=== PATIENT | female | born 1960 | race American Indian/Alaskan Native ===

== ENCOUNTER 2016-09-05 20:11 | Inpatient (IN) | payer OTHER ==
[2016-09-05 22:31] LABS: Anion Gap 17 mmol/L; Blood Urea Nitrogen 11 mg/dL (7-17); Calcium 9.5 mg/dL (8.4-10.2); Carbon Dioxide 24 mmol/L (22-30); Chloride 97.8 mmol/L (98-107); Glucose 129 mg/dL (65-100); Potassium 4.3 mmol/L (3.6-5.0); Sodium 134 mmol/L (137-145)
[2016-09-05 22:35] LABS: Mean Corpuscular HGB Conc 34 % (30-34); Mean Corpuscular Hemoglobin 38 pg (28-32); Mean Corpuscular Volume 110 fl (79-97); Red Blood Count 1.43 M/mm3 (3.65-5.03)
[2016-09-05 22:39] LABS: Platelet Count 104 K/mm3 (140-440); White Blood Count 3.6 K/mm3 (4.5-11.0)
[2016-09-05 22:42] LABS: Hematocrit 15.7 % (30.3-42.9); Hemoglobin 5.4 gm/dl (10.1-14.3); Red Cell Distribution Width 32.1 % (13.2-15.2)
[2016-09-05 23:03] LABS: Bilirubin,Urine NEG (Negative); Blood,Urine SM (Negative); Ketones,Urine NEG (Negative); Leukocyte Esterase,Urine NEG (Negative); Nitrite,Urine NEG (Negative); Protein,Urine <15 mg/dL mg/dL (Negative)
[2016-09-05] MEDS ORDERED: NACL 0.9% 500 ML 500 ML IV ONE (23:07)
[2016-09-05 23:14] LABS: Basophils % (Manual) 0 % (0.0-1.8); Blastocytes % (Manual) 0 %
[2016-09-05 23:16] LABS: Anisocytosis 3+
[2016-09-05 23:17] LABS: Ovalocytes 1+; Poikilocytosis 2+; Tear Drop Cells 1+
[2016-09-05 23:18] LABS: Hypochromasia 3+; Microcytosis 1+
[2016-09-05 23:19] LABS: Schistocytes 1+
[2016-09-05 23:20] LABS: Diff Status Complete; Platelet Estimate Appears Decreased
--- NOTE | 2016-09-05 23:21 | Emergency Department Report ---
HPI - General Chief Complaint: Back Pain/Injury Time Seen by Provider: 09/05/16 23:06 - HPI HPI: Room 9 The patient is a 56-year-old female presenting with a chief complaint of fatigue. The patient states for the past 2 weeks she has felt tired and fatigued. The patient states she has had intermittent back pain when at work for the past 2 weeks. Patient denies abdominal pain. Patient denies nausea/ vomiting, bright red blood per rectum, melena or vaginal bleeding. Patient states she has had a history of anemia in the past but the etiology is unknown. Location: [see above] Duration: 2 weeks Quality:, Fatigue, Pain Severity: Moderate Modifying factors: [see above] Context: [see above] Mode of transportation: [not driving] ED Past Medical Hx - Past Medical History Hx Hypertension: Yes Hx Diabetes: Yes Additional medical history: Anemia - Surgical History Additional Surgical History: - Family History Family history: no significant - Social History Smoking Status: Never Smoker Substance Use Type: None - Medications Home Medications: Home Medications Medication Instructions Recorded Confirmed Last Taken Type metFORMIN mg PO BID 09/05/16 Unknown History ED Review of Systems ROS: Stated complaint: BACK PAIN Other details as noted in HPI Comment: All other systems reviewed and negative Constitutional: malaise, weakness. denies: chills, fever Eyes: denies: eye pain, eye discharge, vision change ENT: denies: ear pain, throat pain Respiratory: denies: cough, shortness of breath, wheezing Cardiovascular: denies: chest pain, palpitations Endocrine: no symptoms reported Gastrointestinal: denies: abdominal pain, nausea, vomiting, melena, hematochezia Genitourinary: denies: urgency, dysuria, discharge Musculoskeletal: back pain, myalgia. denies: joint swelling, arthralgia Skin: denies: rash, lesions Neurological: denies: headache, weakness, paresthesias Psychiatric: denies: anxiety, depression Hematological/Lymphatic: denies: easy bleeding, easy bruising Physical Exam - Physical Exam Vital Signs: Vital Signs 09/05/16 21:18 Temperature 98.8 F Pulse Rate 94 H Respiratory 18 Rate Blood Pressure 180/77 Blood Pressure 180/77 [Left] O2 Sat by Pulse 100 Oximetry Physical Exam: GENERAL: The patient is well-developed well-nourished female sitting on stretcher not appearing to be in acute distress. [] HEENT: Normocephalic. Atraumatic. Extraocular motions are intact. Patient has moist mucous membranes. NECK: Supple. Regular midline CHEST/LUNGS: Clear to auscultation. There is no respiratory distress noted. HEART/CARDIOVASCULAR: Regular. There is no tachycardia. There is no gallop rub or murmur. ABDOMEN: Abdomen is soft, nontender. Patient has normal bowel sounds. There is no abdominal distention. SKIN: There is no rash. There is no edema. There is no diaphoresis. NEURO: The patient is awake, alert, and oriented. The patient is cooperative. The patient has normal speech and gait. MUSCULOSKELETAL: There is no evidence of acute injury. RECTAL: Guaiac negative ED Course Vital Signs 09/05/16 21:18 Temperature 98.8 F Pulse Rate 94 H Respiratory 18 Rate Blood Pressure 180/77 Blood Pressure 180/77 [Left] O2 Sat by Pulse 100 Oximetry ED Medical Decision Making - Lab Data Result diagrams: 09/05/16 22:01 09/05/16 22:01 Laboratory Tests 09/05/16 09/05/16 09/05/16 21:24 22:01 22:01 WBC 3.6 L RBC 1.43 L Hgb 5.4 L* Hct 15.7 L* MCV 110 H MCH 38 H MCHC 34 RDW 32.1 H Plt Count 104 L Lymph % (Auto) Hat Finishing Materials Preparer Add Manual Diff Complete Total Counted 100 Seg Neuts % (Manual) 34.0 L Band Neutrophils % 1.0 Lymphocytes % (Manual) 59.0 H Reactive Lymphs % (Man) 0 Monocytes % (Manual) 2.0 Eosinophils % (Manual) 2.0 Basophils % (Manual) 0 Metamyelocytes % 0 Myelocytes % 2.0 Promyelocytes % 0 Blast Cells % 0 Nucleated RBC % 15.0 H Seg Neutrophils # Man 1.2 L Band Neutrophils # 0.0 Lymphocytes # (Manual) 2.1 Abs React Lymphs (Man) 0.0 Monocytes # (Manual) 0.1 Eosinophils # (Manual) 0.1 Basophils # (Manual) 0.0 Metamyelocytes # 0.0 Myelocytes # 0.1 Promyelocytes # 0.0 Blast Cells # 0.0 WBC Morphology Not Reportable Hypersegmented Neuts Not Reportable Hyposegmented Neuts Not Reportable Hypogranular Neuts Not Reportable Smudge Cells Not Reportable Toxic Granulation Not Reportable Toxic Vacuolation Not Reportable Dohle Bodies Not Reportable Pelger-Huet Anomaly Not Reportable Diane Rods Not Reportable Platelet Estimate Appears decreased Clumped Platelets Not Reportable Plt Clumps, EDTA Not Reportable Large Platelets Not Reportable Giant Platelets Not Reportable Platelet Satelliting Not Reportable Plt Morphology Comment Not Reportable RBC Morphology Not Reportable Dimorphic RBCs Not Reportable Polychromasia Not Reportable Hypochromasia 3+ Poikilocytosis 2+ Anisocytosis 3+ Microcytosis 1+ Macrocytosis Not Reportable Spherocytes Not Reportable Pappenheimer Bodies Not Reportable Sickle Cells Not Reportable Target Cells Not Reportable Tear Drop Cells 1+ Ovalocytes 1+ Helmet Cells Not Reportable [place] Bodies Not Reportable [place] Rings Not Reportable Leo Cells Not Reportable Bite Cells Not Reportable Crenated Cell Not Reportable Elliptocytes Not Reportable Acanthocytes (Spur) Not Reportable Rouleaux Not Reportable Hemoglobin C Crystals Not Reportable Schistocytes 1+ Malaria parasites Not Reportable Obi Bodies Not Reportable Hem Pathologist Commnt No PT INR APTT Sodium 134 L Potassium 4.3 Chloride 97.8 L Carbon Dioxide 24 Anion Gap 17 BUN 11 Creatinine 0.4 L Estimated GFR > 60 BUN/Creatinine Ratio 27.50 Glucose 129 H POC Glucose 182 H Calcium 9.5 Urine Color Urine Turbidity Urine pH Ur Specific [place] Urine Protein Urine Glucose (UA) Urine Ketones Urine Blood Urine Nitrite Urine Bilirubin Urine Urobilinogen Ur Leukocyte Esterase Urine WBC (Auto) Urine RBC (Auto) U Epithel Cells (Auto) Blood Type Antibody Screen Crossmatch 09/05/16 09/05/16 09/05/16 22:05 23:15 23:15 WBC RBC Hgb Hct MCV MCH MCHC RDW Plt Count Lymph % (Auto) Add Manual Diff Total Counted Seg Neuts % (Manual) Band Neutrophils % Lymphocytes % (Manual) Reactive Lymphs % (Man) Monocytes % (Manual) Eosinophils % (Manual) Basophils % (Manual) Metamyelocytes % Myelocytes % Promyelocytes % Blast Cells % Nucleated RBC % Seg Neutrophils # Man Band Neutrophils # Lymphocytes # (Manual) Abs React Lymphs (Man) Monocytes # (Manual) Eosinophils # (Manual) Basophils # (Manual) Metamyelocytes # Myelocytes # Promyelocytes # Blast Cells # WBC Morphology Hypersegmented Neuts Hyposegmented Neuts Hypogranular Neuts Smudge Cells Toxic Granulation Toxic Vacuolation Dohle Bodies Pelger-Huet Anomaly Diane Rods Platelet Estimate Clumped Platelets Plt Clumps, EDTA Large Platelets Giant Platelets Platelet Satelliting Plt Morphology Comment RBC Morphology Dimorphic RBCs Polychromasia Hypochromasia Poikilocytosis Anisocytosis Microcytosis Macrocytosis Spherocytes Pappenheimer Bodies Sickle Cells Target Cells Tear Drop Cells Ovalocytes Helmet Cells [place] Bodies [place] Rings Leo Cells Bite Cells Crenated Cell Elliptocytes Acanthocytes (Spur) Rouleaux Hemoglobin C Crystals Schistocytes Malaria parasites Obi Bodies Hem Pathologist Commnt PT 14.2 INR 1.11 APTT 25.1 Sodium Potassium Chloride Carbon Dioxide Anion Gap BUN Creatinine Estimated GFR BUN/Creatinine Ratio Glucose POC Glucose Calcium Urine Color Yellow Urine Turbidity Clear Urine pH 5.0 Ur Specific [place] 1.010 Urine Protein <15 mg/dl Urine Glucose (UA) Neg Urine Ketones Neg Urine Blood Sm Urine Nitrite Neg Urine Bilirubin Neg Urine Urobilinogen 2.0 Ur Leukocyte Esterase Neg Urine WBC (Auto) 1.0 Urine RBC (Auto) 1.0 U Epithel Cells (Auto) < 1.0 Blood Type B POSITIVE Antibody Screen Negative Crossmatch See Detail - Radiology Data Radiology results: report reviewed (CT abdomen pelvis), image reviewed (CT abdomen pelvis) CT abdomen and pelvis (read by radiologist)-there is no evidence of intestinal or urinary tract obstruction. No ileus or enteritis. The appendix is normal. The uterus is retroverted. There is slightly thickened endometrial pattern suspected. Further evaluation of the pelvic ultrasound may be of benefit. Minimal fluid in the lower pelvis. No adnexal masses are identified. - Differential Diagnosis retroperitoneal hematoma, GI bleed, symptomatic anemia Critical care attestation.: If time is entered above; I have spent that time in minutes in the direct care of this critically ill patient, excluding procedure time. ED Disposition Clinical Impression: Symptomatic anemia Disposition: OP ADMITTED IP TO THIS HOSP Is pt being admited?: Yes Does the pt Need Aspirin: No Condition: Serious Time of Disposition: 02:16 (hospitalist paged)
[2016-09-05] MEDS ORDERED: NACL ONE (23:38)
[2016-09-06 00:20] LABS: INR 1.11 (0.87-1.13); Partial Thromboplastin Time 25.1 Sec. (24.2-36.6)
--- NOTE | 2016-09-06 01:16 | Cat Scan Report ---
FINAL REPORT PROCEDURE: CT ABDOMEN PELVIS W CON TECHNIQUE: Computerized axial tomography of the abdomen and pelvis was performed after the IV injection of iodinated nonionic contrast. HISTORY: profound anemia, back pain COMPARISON: No prior studies are available for comparison. FINDINGS: Visualized lower thorax: No significant abnormality. Liver: Normal size and attenuation. Spleen: Normal size and attenuation. Gallbladder and biliary system: Normal. Pancreas: Normal. Adrenals: Normal. Kidneys: Both kidneys have normal size. No hydronephrosis. No renal stones or masses.. GI tract: Stomach has a normal appearance. The small bowel has a normal caliber. No obstruction, ileus or enteritis. Evaluation the bowel is limited without oral contrast. The cecum and appendix are normal. There is significant fecal debris throughout the colon.. Lymph nodes and mesentery: Normal. Vasculature: Normal. Bladder: Normal. Reproductive organs: Uterus is retroverted. There appears to be a thickened endometrial pattern. Further evaluation with ultrasound may be appropriate. No pelvic masses.. Peritoneum: Slight fluid in the lower pelvis.. Musculoskeletal structures: Mild degenerative changes of the spine.. Other: None. IMPRESSION: There is no evidence of intestinal or urinary tract obstruction. No ileus or enteritis. The appendix is normal. The uterus is retroverted. There is a slightly thickened endometrial pattern suspected. Further evaluation of the pelvic structures with ultrasound may be of benefit. Minimal fluid in the lower pelvis. No adnexal masses are identified.
--- NOTE | 2016-09-06 02:25 | History and Physical Report ---
History of Present Illness Date of examination: 09/06/16 Chief complaint: Tiredness History of present illness: 56 year old -[place] female with past medical history significant for hypertension hyperlipidemia, diabetes mellitus, anemia presented to the emergency department complaining of feeling tired and weak for the last 2 weeks. Patient denied any recent blood loss, headache, palpitation, chest pain. Patient didn't have any vaginal bleeding. Patient didn't have a loss of appetite. She had anemia for long time but it was not very concerning. CT of the abdomen and pelvis was done and is significant for endometrial thickening. REVIEW OF SYSTEMS: GENERAL: no weight change, +fatigue, no fever HEAD: no head ache EYES: no blurry vision, no acute visual loss EARS: no hearing loss, no discharge, no earache NOSE: no stuffiness, no sneezing, no discharge MOUTH, THROAT AND NECK: no bleeding gums, no sore throat, no swollen neck CARDIAC: no palpitations, no dyspnea on exertion, no orthopnea, no PND, no edema , no chest pain RESPIRATORY: no shortness of breath, no wheeze, no cough, no sputum, no hemoptysis, no asthma GI: no decreased appetite, no nausea, no vomiting, no dysphagia, no diarrhea, no constipation, no abdominal pain URINARY: no change in frequency, no urgency, no polyuria, no hematuria, no incontinence MUSCULOSKELETAL: no muscle weakness, no pain, no joint stiffness NEUROLOGIC: no loss of sensation/numbness, no tingling, no tremors, no weakness/ paralysis HEMATOLOGIC: no anemia, no easy bruising SKIN: no rashes ENDOCRINE: no heat/cold intolerance, no polyuria, no polydipsia, no thyroid problems PSYCHIATRIC: no anxiety, no depression, no suicidal ideations Past History Past Medical History: diabetes, hypertension Past Surgical History: Social history: full code. denies: smoking, alcohol abuse, prescription drug abuse, IV drug use Family history: no significant family history Medications and Allergies Allergies Allergy/AdvReac Type Severity Reaction Status Date / Time No Known Allergies Allergy Unverified 09/05/16 21:43 Home Medications Medication Instructions Recorded Confirmed Last Taken Type metFORMIN mg PO BID 09/05/16 Unknown History Exam - Physical Exam Narrative exam: Not in cardiopulmonary distress. The patient appeared well nourished and normally developed. Vital signs as documented. Head exam is unremarkable. No scleral icterus . Neck is without jugular venous distension, thyromegaly, or carotid bruits. Lungs are clear to auscultation. Cardiac exam reveals regular rate and Rhythm. First and second heart sounds normal. No murmurs, rubs or gallops. Abdominal exam reveals normal bowel sounds, no masses, no organomegaly and no aortic enlargement. Extremities are nonedematous and both femoral and pedal pulses are normal. Skin: generalized pallor. SERVICE DESK LEAD: Alert and oriented 3. No focal weakness. - Constitutional Vitals: Temp Pulse Resp BP Pulse Ox 98.8 F 94 H 18 180/77 100 09/05/16 21:18 09/05/16 21:18 09/05/16 21:18 09/05/16 21:18 09/05/16 21:18 Results - Labs CBC & Chem 7: 09/05/16 22:01 09/05/16 22:01 Labs: Laboratory Last Values WBC 3.6 K/mm3 (4.5-11.0) L 09/05/16 22: RBC 1.43 M/mm3 (3.65-5.03) L 09/05/16 22:01 Hgb 5.4 gm/dl (10.1-14.3) L* 09/05/16 22: Hct 15.7 % (30.3-42.9) L* 09/05/16 22:01 MCV 110 fl (79-97) H 09/05/16 22:01 MCH 38 pg (28-32) H 09/05/16 22:01 MCHC 34 % (30-34) 09/05/16 22:01 RDW 32.1 % (13.2-15.2) H 09/05/16 22:01 Plt Count 104 K/mm3 (140-440) L 09/05/16 22:01 Lymph % (Auto) Textile Converter 09/05/16 22:01 Add Manual Diff Complete 09/05/16 22: Total Counted 100 09/05/16 22:01 Seg Neuts % (Manual) 34.0 % (40.0-70.0) L 09/05/16 22:01 Band Neutrophils % 1.0 % 09/05/16 22:01 Lymphocytes % (Manual) 59.0 % (13.4-35.0) H 09/05/16 22:01 Reactive Lymphs % (Man) 0 % 09/05/16 22:01 Monocytes % (Manual) 2.0 % (0.0-7.3) 09/05/16 22:01 Eosinophils % (Manual) 2.0 % (0.0-4.3) 09/05/16 22:01 Basophils % (Manual) 0 % (0.0-1.8) 09/05/16 22:01 Metamyelocytes % 0 % 09/05/16 22:01 Myelocytes % 2.0 % 09/05/16 22:01 Promyelocytes % 0 % 09/05/16 22:01 Blast Cells % 0 % 09/05/16 22:01 Nucleated RBC % 15.0 % (0.0-0.9) H 09/05/16 22:01 Seg Neutrophils # Man 1.2 K/mm3 (1.8-7.7) L 09/05/16 22:01 Band Neutrophils # 0.0 K/mm3 09/05/16 22:01 Lymphocytes # (Manual) 2.1 K/mm3 (1.2-5.4) 09/05/16 22:01 Abs React Lymphs (Man) 0.0 K/mm3 09/05/16 22:01 Monocytes # (Manual) 0.1 K/mm3 (0.0-0.8) 09/05/16 22:01 Eosinophils # (Manual) 0.1 K/mm3 (0.0-0.4) 09/05/16 22:01 Basophils # (Manual) 0.0 K/mm3 (0.0-0.1) 09/05/16 22:01 Metamyelocytes # 0.0 K/mm3 09/05/16 22:01 Myelocytes # 0.1 K/mm3 09/05/16 22:01 Promyelocytes # 0.0 K/mm3 09/05/16 22:01 Blast Cells # 0.0 K/mm3 09/05/16 22:01 WBC Morphology Not Reportable 09/05/16 22:01 Hypersegmented Neuts Not Reportable 09/05/16 22:01 Hyposegmented Neuts Not Reportable 09/05/16 22:01 Hypogranular Neuts Not Reportable 09/05/16 22:01 Smudge Cells Not Reportable 09/05/16 22:01 Toxic Granulation Not Reportable 09/05/16 22:01 Toxic Vacuolation Not Reportable 09/05/16 22:01 Dohle Bodies Not Reportable 09/05/16 22:01 Pelger-Huet Anomaly Not Reportable 09/05/16 22:01 Diane Rods Not Reportable 09/05/16 22:01 Platelet Estimate Appears decreased 09/05/16 22:01 Clumped Platelets Not Reportable 09/05/16 22:01 Plt Clumps, EDTA Not Reportable 09/05/16 22:01 Large Platelets Not Reportable 09/05/16 22:01 Giant Platelets Not Reportable 09/05/16 22:01 Platelet Satelliting Not Reportable 09/05/16 22:01 Plt Morphology Comment Not Reportable 09/05/16 22:01 RBC Morphology Not Reportable 09/05/16 22:01 Dimorphic RBCs Not Reportable 09/05/16 22:01 Polychromasia Not Reportable 09/05/16 22:01 Hypochromasia 3+ 09/05/16 22:01 Poikilocytosis 2+ 09/05/16 22:01 Anisocytosis 3+ 09/05/16 22:01 Microcytosis 1+ 09/05/16 22:01 Macrocytosis Not Reportable 09/05/16 22:01 Spherocytes Not Reportable 09/05/16 22:01 Pappenheimer Bodies Not Reportable 09/05/16 22:01 Sickle Cells Not Reportable 09/05/16 22:01 Target Cells Not Reportable 09/05/16 22:01 Tear Drop Cells 1+ 09/05/16 22:01 Ovalocytes 1+ 09/05/16 22:01 Helmet Cells Not Reportable 09/05/16 22:01 Sam-[place] Bodies Not Reportable 09/05/16 22:01 [place] Rings Not Reportable 09/05/16 22:01 Leo Cells Not Reportable 09/05/16 22:01 Bite Cells Not Reportable 09/05/16 22:01 Crenated Cell Not Reportable 09/05/16 22:01 Elliptocytes Not Reportable 09/05/16 22:01 Acanthocytes (Spur) Not Reportable 09/05/16 22:01 Rouleaux Not Reportable 09/05/16 22:01 Hemoglobin C Crystals Not Reportable 09/05/16 22:01 Schistocytes 1+ 09/05/16 22:01 Malaria parasites Not Reportable 09/05/16 22:01 Obi Bodies Not Reportable 09/05/16 22:01 Hem Pathologist Commnt No 09/05/16 22:01 PT 14.2 Sec. (12.2-14.9) 09/05/16 23:15 INR 1.11 (0.87-1.13) 09/05/16 23:15 APTT 25.1 Sec. (24.2-36.6) 09/05/16 23:15 Sodium 134 mmol/L (137-145) L 09/05/16 22:01 Potassium 4.3 mmol/L (3.6-5.0) 09/05/16 22:01 Chloride 97.8 mmol/L (98-107) L 09/05/16 22:01 Carbon Dioxide 24 mmol/L (22-30) 09/05/16 22:01 Anion Gap 17 mmol/L 09/05/16 22:01 BUN 11 mg/dL (7-17) 09/05/16 22:01 Creatinine 0.4 mg/dL (0.7-1.2) L 09/05/16 22:01 Estimated GFR > 60 ml/min 09/05/16 22:01 BUN/Creatinine Ratio 27.50 % 09/05/16 22:01 Glucose 129 mg/dL (65-100) H 09/05/16 22:01 POC Glucose 182 (70-105) H 09/05/16 21:24 Calcium 9.5 mg/dL (8.4-10.2) 09/05/16 22:01 Urine Color Yellow (Yellow) 09/05/16 22:05 Urine Turbidity Clear (Clear) 09/05/16 22:05 Urine pH 5.0 (5.0-7.0) 09/05/16 22:05 Ur Specific [place] 1.010 (1.003-1.030) 09/05/16 22:05 Urine Protein <15 mg/dl mg/dL (Negative) 09/05/16 22:05 Urine Glucose (UA) Neg mg/dL (Negative) 09/05/16 22:05 Urine Ketones Neg mg/dL (Negative) 09/05/16 22:05 Urine Blood Sm (Negative) 09/05/16 22:05 Urine Nitrite Neg (Negative) 09/05/16 22:05 Urine Bilirubin Neg (Negative) 09/05/16 22:05 Urine Urobilinogen 2.0 mg/dL (<2.0) 09/05/16 22:05 Ur Leukocyte Esterase Neg (Negative) 09/05/16 22:05 Urine WBC (Auto) 1.0 /HPF (0.0-6.0) 09/05/16 22:05 Urine RBC (Auto) 1.0 /HPF (0.0-6.0) 09/05/16 22:05 U Epithel Cells (Auto) < 1.0 /HPF (0-13.0) 09/05/16 22:05 Blood Type B POSITIVE 09/05/16 23:15 Antibody Screen Negative 09/05/16 23:15 Crossmatch See Detail 09/05/16 23:15 - Imaging and Cardiology CT scan - pelvis: report reviewed US - abdomen: report reviewed Assessment and Plan Assessment and plan: Symptomatic anemia Endometrial thickening on CT Uncontrolled hypertension Diabetes mellitus type 2 - Transfused 2 units of blood, check H&H after that - NUCLEAR ENGINEER and consent placed - Start on amlodipine, hydralazine when necessary - Sliding-scale insulin DVT prophylaxis - SCD Disposition - Admit to the medical floor Advance Directives: Yes VTE prophylaxis?: Mechanical Plan of care discussed with patient/family: Yes
[2016-09-06] MEDS ORDERED: NACL 0.9% 500 ML 500 ML ONE (02:42)
[2016-09-06] MEDS ORDERED: APRESOLINE IV PRN (04:38)
[2016-09-06] MEDS ORDERED: D50W (25GM) IV PRN (04:39)
[2016-09-06] MEDS ORDERED: NACL 0.9% 250ML 250 ML ONE (06:18)
[2016-09-06] MEDS: NORVASC PO SCH (10:50)
--- NOTE | 2016-09-06 14:07 | Consultation ---
History of Present Illness Consult date: 09/06/16 Requesting physician: MAINOR KAUR Reason for consult: other (Endometrial hyperplasia) History of present illness: Pt is a 56yo BF LMP 4 years ago spontaneously presented to the emergency department complaining of feeling tired and weak for the last 2 weeks. Patient denies any recent blood loss, headache, palpitation, chest pain or vaginal bleeding. She also denies having a loss of appetite, but has noticed ~ 20lb weight loss in the past 4 weeks. She has been anemic for long a time but it was not very concerning. A CT of the abdomen and pelvis was done, and is significant for endometrial thickening, and thus I have been consulted for further evaluation. Past History Past Medical History: hypertension, diabetes Past Surgical History: section Social history: no significant social history, Medications and Allergies Allergies Allergy/AdvReac Type Severity Reaction Status Date / Time No Known Allergies Allergy Unverified 09/05/16 21:43 Home Medications Medication Instructions Recorded Confirmed Last Taken Type metFORMIN mg PO BID 09/05/16 Unknown History Active Meds: Active Medications Acyclovir (Zovirax) 800 mg PO Q12H ANEUDY Amlodipine Besylate (Norvasc) 5 mg PO QDAY ANEUDY Last Admin: 09/06/16 10:50 Dose: 5 mg Dextrose (D50w (25gm)) 50 ml IV PRN PRN PRN Reason: Hypoglycemia Hydralazine HCl (Apresoline) 10 mg IV Q4H PRN PRN Reason: Hypertension Last Admin: 09/06/16 06:11 Dose: 10 mg Insulin Aspart (Novolog) 0 units SUB-Q ACHS ANEUDY PRN Reason: Protocol Review of Systems All systems: negative - Vital Signs Vital signs: Vital Signs Temp Pulse Resp BP Pulse Ox 98 F 94 H 18 180/77 100 09/05/16 21:18 09/05/16 21:18 09/05/16 21:18 09/05/16 21:18 09/05/16 21:18 Temp Pulse Resp BP Pulse Ox 98.6 F 73 20 157/76 98 09/06/16 10:28 09/06/16 10:50 09/06/16 10:28 09/06/16 10:50 09/06/16 08:10 - Physical Exam Breasts: Positive: deferred Cardiovascular: Regular rate Lungs: Positive: Clear to auscultation Abdomen: Positive: normal appearance, soft Uterus: Positive: other (deferred) Extremities: Positive: normal Results Result Diagrams: 09/06/16 14:46 09/05/16 22:01 Abnormal lab results 09/06/16 09/06/16 Range/Units 05:25 11:29 POC Glucose 112 H (70-105) Hemoglobin A1c 7.2 H (4-6) % All other labs normal. CT scan - pelvis: report reviewed Assessment and Plan - Patient Problems (1) Symptomatic anemia Onset Date: 09/06/16 Current Visit: Yes Status: Acute Plan to address problem: A: Symptomatic anemia - not currently bleeding Endometrial thickening on CT Scan Chronic Hypertension Diabetes Mellitus P: Agree with current admission and blood transfusion Will obtain a pelvic u/s Will follow with you
[2016-09-06] MEDS: NOVOLOG SUB-Q SCH ×3 (14:12→22:51)
[2016-09-06 15:20] LABS: Hematocrit 24.9 % (30.3-42.9); Hemoglobin 8.4 gm/dl (10.1-14.3)
--- NOTE | 2016-09-06 15:30 | Event Note ---
Date: 09/06/16 Patient seen and examined in no acute distress. Awaiting ROD CUP FILLER evaluation. Stool is negative for blood. Accu-Cheks adjusted with insulin changed to before meals and at bedtime. Repeat a.m. labs. Anticipate discharge in a.m. if no further intervention by ROD CUP FILLER.
[2016-09-06] MEDS: ZOVIRAX PO SCH (18:17)
[2016-09-06] MEDS ORDERED: NOVOLOG SUB-Q SCH (22:00)
[2016-09-07] MEDS: ZOVIRAX PO SCH (00:17)
[2016-09-07 05:59] LABS: Hematocrit 24.6 % (30.3-42.9); Hemoglobin 8.4 gm/dl (10.1-14.3); Mean Corpuscular HGB Conc 34 % (30-34); Mean Corpuscular Hemoglobin 32 pg (28-32); Mean Corpuscular Volume 94 fl (79-97); Red Blood Count 2.63 M/mm3 (3.65-5.03); White Blood Count 3.6 K/mm3 (4.5-11.0)
[2016-09-07 06:15] LABS: Platelet Count 105 K/mm3 (140-440); Red Cell Distribution Width 32.3 % (13.2-15.2)
[2016-09-07 06:23] LABS: Anion Gap 20 mmol/L; Blood Urea Nitrogen 12 mg/dL (7-17); Calcium 9.5 mg/dL (8.4-10.2); Carbon Dioxide 24 mmol/L (22-30); Chloride 100.2 mmol/L (98-107); Glucose 140 mg/dL (65-100); Potassium 4.1 mmol/L (3.6-5.0); Sodium 140 mmol/L (137-145)
--- NOTE | 2016-09-07 07:50 | Ultrasound Report ---
ULTRASOUND PELVIC COMPLETE ULTRASOUND TRANSVAGINAL HISTORY: Uterine fibroid disease. TECHNIQUE: Transabdominal and transvaginal ultrasound with color and spectral doppler interrogation. The uterus is retroverted and measures 7.9 x 3.3 x 5.9 cm. A 1.5 x 1.5 cm hypoechoic, submucosal fibroid is identified in the anterior wall. A 1.0 cm intramural fibroid is noted in the uterine fundus. The endometrial stripe appears slightly atrophic measuring 4 mm. The cervix is unremarkable. The right ovary measures 2.8 x 2.2 x 1.7 cm. The left ovary measures 2.1 x 1.4 x 2.2 cm. No adnexal cyst or mass. There is trace free fluid in the cul-de-sac which appears physiologic. IMPRESSION: Small uterine fibroids as outlined above. Mild endometrial atrophy. Trace pelvic fluid.
[2016-09-07] MEDS: NOVOLOG SUB-Q SCH (07:59)
--- NOTE | 2016-09-07 08:09 | Discharge Summary ---
Providers - Providers Date of Admission: 09/06/16 02:20 Date of discharge: 09/07/16 Attending physician: CASTRO WHITE MD 09/06/16 02:23 Consult to Physician [CONS] Routine Consulting Provider: KEYON MCKEON Reason For Exam: symptomatic anemia, endometrial thickening Place consult to:: optical manager Notified:: pager Phone number called:: [phone] Was contact made?: Yes If yes, spoke with:: dr. mckeon Time called:: 09:54 Primary care physician: PULMONARY PHYSICAL THERAPIST Hospitalization Reason for admission: symptomatic anemia Condition: Serious Hospital course: 56 year old -Polish female with past medical history significant for hypertension hyperlipidemia, diabetes mellitus, anemia presented to the emergency department complaining of feeling tired and weak for the last 2 weeks. Patient denied any recent blood loss, headache, palpitation, chest pain. Patient didn't have any vaginal bleeding. Patient didn't have a loss of appetite. She had anemia for long time but it was not very concerning. CT of the abdomen and pelvis was done and is significant for endometrial thickening. Patient received 2 units packed red blood cell transfusion ultrasound was done which showed small uterine fibroids and thickened endometrium TIRE AND LUBE TECHNICIAN recommended outpatient follow-up. She is clinically stable at this time for discharge. Treatment was discussed with the patient and also with the daughter was in the room throughout the stay. Discharge diagnosis Symptomatic anemia Uterine fibroids Thickened endometrium Uncontrolled hypertension Diabetes mellitus type 2 Disposition: DISCHARGED TO HOME OR SELFCARE Time spent for discharge: 35 mins Core Measure Documentation - Palliative Care Palliative Care/ Comfort Measures: Not Applicable - Core Measures Any of the following diagnoses?: none - VTE Discharge Requirements Deep Vein Thrombosis/Pulmonary Embolism Present on Admission: No Exam - Physical Exam Narrative exam: VITAL SIGNS: Reviewed. GENERAL: The patient appeared well nourished and normally developed. Vital signs as documented. HEAD: No signs of head trauma. EYES: Pupils are equal. Extraocular motions intact. EARS: Hearing grossly intact. MOUTH: Oropharynx is normal. NECK: No adenopathy, no JVD. CHEST: Chest with clear breath sounds bilaterally. No wheezes, rales, or rhonchi. CARDIAC: Regular rate and rhythm. S1 and S2, without murmurs, gallops, or rubs. VASCULAR: No Edema. Peripheral pulses normal and equal in all extremities. ABDOMEN: Soft, without detectable tenderness. No sign of distention. No rebound or guarding, and no masses palpated. Bowel Sounds normal. MUSCULOSKELETAL: Good range of motion of all major joints. Extremities without clubbing, cyanosis or edema. NEUROLOGIC EXAM: Alert and oriented x 3. No focal sensory or strength deficits. Speech normal. Follows commands. PSYCHIATRIC: Mood normal. SKIN: No rash or lesions. - Constitutional Vitals: Temp Pulse Resp BP Pulse Ox 98.2 F 72 20 142/66 97 09/07/16 00:30 09/07/16 00:30 09/07/16 00:30 09/07/16 00:30 09/07/16 00:30 Plan Activity: advance as tolerated, fall precautions Diet: low fat, diabetic Follow up with: PRIMARY CARE, [Primary Care Provider] - 3-5 Days KEYON MCKEON MD [Staff Physician] - 7 Days Prescriptions: Ferrous Sulfate [Feosol 325 MG tab] 325 mg PO BID #60 tablet Lisinopril [Zestril TAB] 10 mg PO QDAY #30 tablet
[2016-09-07 08:11] VITALS: BP 154/78
--- NOTE | 2016-09-07 09:22 | Admit Criteria Form ---
Admission Criteria Documentation: ANEMIA, IRON DEFICIENCY OR UNSPECIFIED Clinical Indications for Inpatient Care (Place 'X' for any and all applicable criteria): Admission is indicated for ANY ONE of the following(1)(2)(3)(4)(5)(6)(7): [X I. Inpatient admission required rather than observation care (Also use Anemia, Iron Deficiency or Unspecified: Observation Care guideline as appropriate) because of ANY ONE of the following: [] a) Hemodynamic instability that is severe or persistent [] b) Active bleeding that cannot be rapidly controlled [] c) CVS symptoms (i.e., dyspnea, chest pain, heart failure) that are severe or persistent [] d) Neurologic symptoms (i.e., cognitive impairment, recurrent syncope or near syncope) that are severe or persistent [] e) Cardiac arrhythmias of immediate concern [] f) Acute peripheral ischemia (e.g., pulseless, cool, mottled, or cyanotic extremity) [] g) High-risk low platelet count [] h) Acute renal failure [] i) Ongoing transfusion for blood loss (greater than 2 units) [] j) IV fluid to replace significant ongoing (eg, >24 hours) losses (> 3 L/m2 per day) [] k) Pulmonary artery catheter monitoring [] l) Supplemental oxygen or respiratory treatments for over 24 hours that are performable only in acute inpatient setting [] m) Immediate inpatient surgery [X n) Other condition, treatment or monitoring requiring inpatient admission [] II Active massive hemorrhage [] III. Active hemolysis with rapidly progressive anemia [A](6) Extended stay beyond goal length of stay may be needed for (17)(18) []a) Diagnosed cause of anemia requiring longer hospitalization (eg, active GI bleeding, immune hemolysis requiring electrophoresis, complications of malignancy requiring acute care []b) Continued emergent anemia indicators (23) []c) Transfusion reactions []d) Associated leukopenia or thrombocytopenia needing inpatient care []e) Active comorbidities (eg, renal failure, heart failure) The original [facility] Care Guidelines content created by [facility] Care Guidelines has been revised. The portions of the content which have been revised are identified through the use of italic text or in bold. [facility] Guidelines has neither reviewed nor approved the modified material. All other unmodified content is copyright [facility] Care Guidelines. Please see references footnoted in the original [facility] edition 2016 Admission Criteria Met: Yes
[2016-09-07] MEDS: NORVASC PO SCH (11:03)
== END 2016-09-07 12:01 | disposition home or self-care (01) | DRG 761 ==
LOC: ED 20:11 → 3A 09-06 02:20
PROVIDERS: ADMIT Internal Medicine; ATTEND Internal Medicine
PROC: 30233N1 Transfusion of Nonautologous Red Blood Cells into Peripheral Vein, Percutaneous Approach (ICD-10-PCS; principal; 2016-09-06)
DX: D25.9 Leiomyoma of uterus, unspecified (principal); D64.9 Anemia, unspecified; E11.9 Type 2 diabetes mellitus without complications; I10 Essential (primary) hypertension; E78.5 Hyperlipidemia, unspecified; R93.8 Abnormal findings on diagnostic imaging of other specified body structures
CPT/HCPCS: 36415; 74177; 76830; 76856; 80048; 81001; 82271; 82962; 83036; 85007; 85014; 85018; 85025; 85027; 85610; 85730; 86850; 86900; 86901; 86920; J0360; J1815; J7040; J7050; P9016; Q9967

== ENCOUNTER 2021-09-26 13:00 | Emergency (ER) | payer OTHER ==
[2021-09-26 13:53] VITALS: BP 116/66
[2021-09-26] MEDS ORDERED: ACETAMINOPHEN 500 MG TAB PO ONE (19:53)
--- NOTE | 2021-09-26 20:03 | Emergency Department Report ---
- General Chief Complaint: Dyspnea/Respdistress Stated Complaint: BODY PAIN Source: patient Mode of arrival: Ambulatory Limitations: No Limitations - History of Present Illness Initial Comments: 61-year-old female presents to the ED with complaint of cough, body ache, facial pain, earache and fever x5 days. Patient states that she has a stuffy nose and in the morning time she noticed the cough. Patient states that she missed her primary care doctor appointment on yesterday due to not feeling well. Patient states that bending forward that the pain is worsened. Patient denies any prior medication. Alert and oriented x3. No acute distress noted. No ill appearance noted. MD Complaint: fever, cough, sore throat, sinus pain Onset/Timin -: days(s) Associated Symptoms: fever, nasal congestion, sore throat, cough Treatments Prior to Arrival: none - Related Data Home Medications Medication Instructions Recorded Confirmed Last Taken metFORMIN mg PO BID 09/05/16 Unknown Previous Rx's Medication Instructions Recorded Last Taken Type Ferrous Sulfate [Feosol 325 MG tab] 325 mg PO BID #60 tablet 09/07/16 Unknown Rx lisinopriL [Zestril TAB] 10 mg PO QDAY #30 tablet 09/07/16 Unknown Rx Amoxicillin/K Clav Tab [Augmentin 1 tab PO Q12HR 10 Days #20 tab 09/26/21 Unknown Rx 875 mg] Levocetirizine Dihydrochloride 5 mg PO DAILY 30 Days #30 tab 09/26/21 Unknown Rx [Xyzal] predniSONE [Deltasone] 50 mg PO QDAY 3 Days #3 tab 09/26/21 Unknown Rx Allergies Allergy/AdvReac Type Severity Reaction Status Date / Time No Known Allergies Allergy Unverified 09/05/16 21:43 ED Review of Systems ROS: Stated complaint: BODY PAIN Other details as noted in HPI Constitutional: denies: chills, fever Eyes: denies: eye pain, eye discharge, vision change ENT: throat pain. denies: ear pain Respiratory: cough. denies: shortness of breath, wheezing Cardiovascular: denies: chest pain, palpitations Endocrine: no symptoms reported Gastrointestinal: denies: abdominal pain, nausea, diarrhea Genitourinary: denies: urgency, dysuria, discharge Musculoskeletal: denies: back pain, joint swelling, arthralgia Skin: denies: rash, lesions Neurological: denies: headache, weakness, paresthesias Psychiatric: denies: anxiety, depression Hematological/Lymphatic: denies: easy bleeding, easy bruising ED Past Medical Hx - Past Medical History Hx Hypertension: Yes Hx Congestive Heart Failure: No Hx Diabetes: Yes Hx Asthma: No Hx COPD: No Additional medical history: Anemia - Surgical History Additional Surgical History: - Social History Smoking Status: Never Smoker - Medications Home Medications: Home Medications Medication Instructions Recorded Confirmed Last Taken Type metFORMIN mg PO BID 09/05/16 Unknown History Ferrous Sulfate [Feosol 325 MG tab] 325 mg PO BID #60 tablet 09/07/16 Unknown Rx lisinopriL [Zestril TAB] 10 mg PO QDAY #30 tablet 09/07/16 Unknown Rx Amoxicillin/K Clav Tab [Augmentin 1 tab PO Q12HR 10 Days #20 tab 09/26/21 Unknown Rx 875 mg] Levocetirizine Dihydrochloride 5 mg PO DAILY 30 Days #30 tab 09/26/21 Unknown Rx [Xyzal] predniSONE [Deltasone] 50 mg PO QDAY 3 Days #3 tab 09/26/21 Unknown Rx ED Physical Exam - General Limitations: No Limitations General appearance: alert, in no apparent distress - Head Head exam: Present: atraumatic, normocephalic - Eye Eye exam: Present: normal appearance - ENT ENT exam: Present: mucous membranes moist - Neck Neck exam: Present: normal inspection - Respiratory Respiratory exam: Present: normal lung sounds bilaterally. Absent: respiratory distress - Cardiovascular Cardiovascular Exam: Present: regular rate, normal rhythm. Absent: systolic murmur, diastolic murmur, rubs, gallop - GI/Abdominal GI/Abdominal exam: Present: soft, normal bowel sounds - Extremities Exam Extremities exam: Present: normal inspection - Back Exam Back exam: Present: normal inspection - Neurological Exam Neurological exam: Present: alert, oriented X3 - Psychiatric Psychiatric exam: Present: normal affect, normal mood - Skin Skin exam: Present: warm, dry, intact, normal color. Absent: rash ED Course Vital Signs 09/26/21 09/26/21 13:52 20:03 Temperature 100.2 F H 100.0 F H Pulse Rate 95 H 82 Respiratory 19 Rate Blood Pressure 116/66 [Right] O2 Sat by Pulse 94 98 Oximetry ED Medical Decision Making - Lab Data Result diagrams: 09/26/21 20:45 09/26/21 20:45 - Radiology Data [facility] [address] [place] [address] XRay Report Signed Patient: CHUCK AREVALO V MR#: [id number] : 1960 Acct:[id number] Age/Sex: 61 / F ADM Date: 09/26/21 Loc: ED Attending Dr: Ordering Physician: OLEKSANDR ALVAREZ Date of Service: 09/26/21 Procedure(s): XR chest routine 2V Accession Number(s): [id number] cc: OLEKSANDR ALVAREZ Fluoro Time In Minutes: CHEST 2 VIEWS INDICATION / CLINICAL INFORMATION: cough. Generalized body pain since Wednesday. COMPARISON: None available. FINDINGS: SUPPORT DEVICES: None. HEART / MEDIASTINUM: No significant abnormality. LUNGS / PLEURA: No significant pulmonary or pleural abnormality. No pneumothorax. ADDITIONAL FINDINGS: No significant additional findings. IMPRESSION: 1. No acute findings. Signer Name: Kem Martinez MD Signed: 09/26/2021 9:22 PM Workstation Name: [id number] Transcribed By: DT Dictated By: Norm Martinez MD Electronically Authenticated By: Norm Martinez MD Signed Date/Time: 09/26/212121 DD/ 21 TD/TT: - Medical Decision Making 61-year-old female presents to the ED with complaint of cough, body ache, facial pain, earache and fever x5 days. Patient states that she has a stuffy nose and in the morning time she noticed the cough. Patient states that she missed her primary care doctor appointment on yesterday due to not feeling well. Patient states that bending forward that the pain is worsened. Patient denies any prior medication. Alert and oriented x3. No acute distress noted. No ill appe arance noted. Physical examination patient has maxillary and frontal tenderness to the sinus cavity,post nasal drip noted. Two-view chest x-ray no acute finding noted. Rechecked the patient is resting quietly quietly and comfortable and feeling better. I discussed the results of diagnostic study, my clinical impression and the plan for further treatment with the patient. Patient agrees with plan and discharge at this present time. All question addressed. I have given the patient instruction regarding a diagnosis ,expectation ,follow- up and return precaution. I explained to the patient that emergent condition may arise and to return to the ED for new worsen and any new persisting condition. I have explained the importance of following up with the primary care physician or referral physician listed below has instructed. The patient verbalized understanding of discharge instruction. Abnormal Lab Results 09/26/21 09/26/21 20:45 20:45 WBC 3.9 L RBC 3.87 Hgb 12.6 Hct 37.6 MCV 97 MCH 33 H MCHC 34 RDW 14.5 Plt Count 179 Lymph % (Auto) 33.1 [place] % (Auto) 13.9 H Eos % (Auto) 0.4 Baso % (Auto) 0.5 Lymph # (Auto) 1.3 [place] # (Auto) 0.5 Eos # (Auto) 0.0 Baso # (Auto) 0.0 Seg Neutrophils % 52.1 Seg Neutrophils # 2.0 Sodium 135 L Potassium 3.9 Chloride 98.2 Carbon Dioxide 25 Anion Gap 16 BUN 24 H Creatinine 1.1 Estimated GFR > 60 BUN/Creatinine Ratio 22 Glucose 148 H Calcium 8.7 Total Bilirubin 0.20 AST 25 ALT 20 Alkaline Phosphatase 83 Total Protein 8.0 Albumin 3.9 Albumin/Globulin Ratio 1.0 Critical care attestation.: If time is entered above; I have spent that time in minutes in the direct care of this critically ill patient, excluding procedure time. ED Disposition Clinical Impression: Sinusitis Qualifiers: Sinusitis location: frontal Chronicity: acute Recurrence: non-recurrent Qualified Code(s): J01.10 - Acute frontal sinusitis, unspecified Disposition: HOME / SELF CARE / HOMELESS Is pt being admited?: No Does the pt Need Aspirin: No Condition: Stable Instructions: Sinusitis, Adult, [id number] Additional Instructions: Take medication as prescribed Return to the ED for any worsening symptom Prescriptions: Amoxicillin/K Clav Tab [Augmentin 875 mg] 1 tab PO Q12HR 10 Days #20 tab predniSONE [Deltasone] 50 mg PO QDAY 3 Days #3 tab Levocetirizine Dihydrochloride [Xyzal] 5 mg PO DAILY 30 Days #30 tab Referrals: ANTHONY OLMSTEAD MD [Primary Care Provider] - 3-5 Days Forms: Work/School Release Form(ED) Time of Disposition: 21:40
[2021-09-26 20:55] LABS: Basophils % (Auto) 0.5 % (0.0-1.8); Eosinophils % (Auto) 0.4 % (0.0-4.3); Hematocrit 37.6 % (30.3-42.9); Hemoglobin 12.6 gm/dl (10.1-14.3); Lymphocytes # (Auto) 1.3 K/mm3 (1.2-5.4); Lymphocytes % (Auto) 33.1 % (13.4-35.0); Mean Corpuscular HGB Conc 34 % (30-34); Mean Corpuscular Volume 97 fl (79-97); Monocytes # (Auto) 0.5 K/mm3 (0.0-0.8); Monocytes % (Auto) 13.9 % (0.0-7.3); Platelet Count 179 K/mm3 (140-440); Red Blood Count 3.87 M/mm3 (3.65-5.03); Red Cell Distribution Width 14.5 % (13.2-15.2)
[2021-09-26 21:23] LABS: Alanine Aminotransferase 20 units/L (7-56); Albumin 3.9 g/dL (3.9-5); BUN/Creatinine Ratio 22; Blood Urea Nitrogen 24 mg/dL (7-17); Calcium 8.7 mg/dL (8.4-10.2); Hemolysis Index 8
--- NOTE | 2021-09-26 21:27 | XRay Report ---
CHEST 2 VIEWS INDICATION / CLINICAL INFORMATION: cough. Generalized body pain since Wednesday. COMPARISON: None available. FINDINGS: SUPPORT DEVICES: None. HEART / MEDIASTINUM: No significant abnormality. LUNGS / PLEURA: No significant pulmonary or pleural abnormality. No pneumothorax. ADDITIONAL FINDINGS: No significant additional findings. IMPRESSION: 1. No acute findings. Signer Name: Kem Martinez MD Signed: 09/26/2021 9:22 PM Workstation Name: [id number]
== END 2021-09-26 21:52 | disposition home or self-care (01) ==
LOC: ED 13:00
DX: J32.9 Chronic sinusitis, unspecified (principal); I10 Essential (primary) hypertension; E11.9 Type 2 diabetes mellitus without complications; Z98.890 Other specified postprocedural states; Z79.899 Other long term (current) drug therapy
CPT/HCPCS: 36415; 71046; 80053; 85025; 99283